=== PATIENT | female | born 1980 | race African-American/Black ===

== ENCOUNTER 2016-06-22 11:39 | Emergency (ER) | payer OTHER ==
[~2016-06-22] VITALS: Ht 157.5 cm; Wt 79.4 kg
[2016-06-22 12:06] VITALS: BP 119/77
== END 2016-06-22 18:58 | disposition home or self-care (01) ==
LOC: ER 11:39
DX: S60.212A Contusion of left wrist, initial encounter (principal); Z91.040 Latex allergy status; X50.9XXA Other and unspecified overexertion or strenuous movements or postures, initial encounter; Y93.89 Activity, other specified; Y99.8 Other external cause status; Y92.89 Other specified places as the place of occurrence of the external cause
CPT/HCPCS: 29125; 73130